=== PATIENT | female | born 1945 | race Caucasian/White ===

== ENCOUNTER 2020-07-21 12:40 | Emergency (ER) | payer MEDICARE, OTHER ==
[~2020-07-21] VITALS: Ht 167.6 cm; Wt 90.7 kg
[2020-07-21 15:22] LABS: Basophils # (auto) 0.1 10 ^3/uL (0-0.2); Basophils % (auto) 0.9 % (0.0-2.0); Eosinophils # (auto) 0.2 10 ^3/uL (0-0.8); Eosinophils % (auto) 1.7 % (0.0-7.0); Hematocrit 39.4 % (36.0-46.0); Hemoglobin 12.7 g/dL (12.2-16.2); Lymphocytes # (auto) 2.4 10 ^3/uL (0.4-5.4); Lymphocytes % (auto) 21.8 % (10.0-50.0); Mean Corpuscular Hgb Conc. 32.1 g/dL (32.0-36.0); Monocytes # (auto) 0.8 10 ^3/uL (0-1.3); Monocytes % (auto) 6.8 % (0.0-12.0); Neutrophils # (auto) 7.7 10 ^3/uL (1.6-8.6); Neutrophils % (auto) 68.8 % (37.0-80.0); Platelet Count (auto) 287 10^3/uL (140-450); Red Blood Cells 4.69 10^6/uL (4.0-5.20); Red Cell Distribution Width 15.9 % (11.8-14.3); White Blood Cell 11.2 10^3/uL (4.4-10.8)
[2020-07-21 15:52] LABS: Albumin 3.7 g/dL (3.4-5.0); Anion Gap 7 (5-15); Blood Urea Nitrogen 24 mg/dL (7-18); Calcium 9.1 mg/dL (8.5-10.1); Carbon Dioxide 27 mmol/L (21-32); Chloride 104 mmol/L (98-107); Glucose 101 mg/dL (74-106); Potassium 3.9 mmol/L (3.5-5.1); Sodium 138 mmol/L (136-145)
[2020-07-21 15:53] LABS: INR 1.11 (0.9-1.15); Partial Thromboplastin Time 29.1 sec (23.0-31.2)
[2020-07-21 15:59] LABS: Alanine Aminotransferase 16 U/L (13-56); Alkaline Phosphatase 116 U/L (45-117); Aspartate Aminotransferase 17 U/L (15-37); Bilirubin, Total 0.3 mg/dL (0.2-1.0); GFR African American 63 mL/min; GFR Non-African American 52 mL/min; Total Protein 8.3 g/dL (6.4-8.2)
[2020-07-21 17:13] VITALS: BP 139/55
[2020-07-21 17:28] LABS: Urine Bacteria FEW /hpf (None Seen); Urine Blood Negative /uL (Negative); Urine Mucus FEW (None Seen); Urine Specific Gravity 1.025 (1.001-1.035); Urine WBC 14 /hpf (0 - 5)
== END 2020-07-21 16:56 | disposition home or self-care (01) ==
LOC: EDBD 12:40 → ER 12:40
DX: S09.8XXA Other specified injuries of head, initial encounter (principal); I48.91 Unspecified atrial fibrillation; I10 Essential (primary) hypertension; W18.39XA Other fall on same level, initial encounter; Y93.89 Activity, other specified; Y92.89 Other specified places as the place of occurrence of the external cause; Y99.8 Other external cause status
CPT/HCPCS: 36415; 70450; 74176; 80053; 81001; 84484; 85025; 85610; 85730

== ENCOUNTER 2022-12-06 20:10 | Emergency (ER) | payer OTHER ==
[~2022-12-06] VITALS: Ht 172.7 cm; Wt 100.0 kg
[2022-12-06 23:08] VITALS: BP 120/62
[2022-12-06] MEDS ORDERED: AMOX-277 PO (23:43)
[2022-12-06] MEDS ORDERED: HYDROcodone-ACET 10/325MG TAB PO ONE (23:45)
[2022-12-06] MEDS ORDERED: TETANUS-DIPTH-ACEL PERTUSSIS 0.5ML SYR Tdap IM ONE (23:45)
== END 2022-12-07 00:03 | disposition home or self-care (01) ==
LOC: ER 20:10
DX: S61.452A Open bite of left hand, initial encounter (principal); W55.01XA Bitten by cat, initial encounter; Y93.89 Activity, other specified; Y92.89 Other specified places as the place of occurrence of the external cause; Y99.8 Other external cause status
CPT/HCPCS: 90471; 90715

== ENCOUNTER 2025-01-25 08:14 | Inpatient (IN) | payer OTHER ==
[2025-01-21 11:37] LABS: Basophils # (auto) 0.1 10 ^3/uL (0-0.2); Basophils % (auto) 1.4 % (0.0-2.0); Eosinophils # (auto) 0.1 10 ^3/uL (0-0.8); Eosinophils % (auto) 1.8 % (0.0-7.0); Hematocrit 39.9 % (36.0-46.0); Hemoglobin 12.8 g/dL (12.2-16.2); Lymphocytes # (auto) 1.6 10 ^3/uL (0.4-5.4); Lymphocytes % (auto) 21.4 % (10.0-50.0); Mean Corpuscular Hemoglobin 27.3 pg (28.0-32.0); Mean Corpuscular Hgb Conc. 32.1 g/dL (32.0-36.0); Monocytes # (auto) 0.6 10 ^3/uL (0-1.3); Monocytes % (auto) 8.6 % (0.0-12.0); Neutrophils # (auto) 4.9 10 ^3/uL (1.6-8.6); Neutrophils % (auto) 66.8 % (37.0-80.0); Platelet Count (auto) 231 10^3/uL (140-450); Red Blood Cells 4.69 10^6/uL (4.0-5.20); Red Cell Distribution Width 16.3 % (11.8-14.3); White Blood Cell 7.3 10^3/uL (4.4-10.8)
[2025-01-21 11:50] LABS: Chloride 105 mmol/L (98-107); Potassium 4.2 mmol/L (3.5-5.1); Sodium 141 mmol/L (136-145)
[2025-01-21 11:51] LABS: Anion Gap 6 (5-15); Calcium 9.1 mg/dL (8.7-10.4); Carbon Dioxide 30 mmol/L (20-31)
[2025-01-21 11:56] LABS: BUN/Creatinine Ratio 13.1 (10.0-20.0); Blood Urea Nitrogen 14 mg/dL (9-23); Glucose 103 mg/dL (74-106); INR 1.03 (0.9-1.15); Partial Thromboplastin Time 26.2 SEC (24.5-34.5); Prothrombin Time 10.9 sec (9.3-11.8)
[2025-01-25] VITALS (8 sets, daily range): BP systolic 137–165; BP diastolic 56–77; PULSE 60–74; RESP 12–18; TEMP 97.5–98.3; O2SAT 90–98
[~2025-01-25] VITALS: Ht 172.7 cm; Wt 105.5 kg
[~2025-01-25 08:14] MED LIST: ALPR1TAB7 PO; AMIO200T33 PO; APIX5TAB PO; ASPI-543 PO; FLUO-125 PO; FURO40TA4 PO; HYDR25TA88 PO; ISOS1TAB28 PO; LISI10TA34 PO; METO25TA93 PO
[2025-01-25] MEDS: IODIXANOL 320MG/ML 100ML BTL IV ONE ×3 (09:22→11:31)
[2025-01-25] MEDS: ANGIOMAX 250 MG VIAL IV ONE (09:24)
[2025-01-25] MEDS: VERAPAMIL 2.5MG/ML INJ 2ML VIAL IV ONE (09:25)
[2025-01-25] MEDS: LIDOCAINE 2%HCL (LOCAL ANESTH.) INJ 20ML MDV ONE ×3 (09:25→12:41)
[2025-01-25] MEDS: SODIUM CHL 0.9% 0 ML ONE (09:25)
[2025-01-25] MEDS: MIDAZOLAM HCL 2MG/2ML 2ml VIAL (1mg/ml) ONE ×3 (09:44→12:43)
[2025-01-25] MEDS: VANCOMYCIN 1GM/200ML PM 200 ML IV ONE (09:45)
[2025-01-25] MEDS: VANCOMYCIN HCL 1000 MG VL ONE ×2 (09:45→11:31)
[2025-01-25] MEDS: MORPHINE SULFATE 4 MG/ML SYR/VIAL ONE ×2 (10:15→14:54)
--- NOTE | 2025-01-25 13:37 | ECG ---
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
--- NOTE | 2025-01-25 15:42 | DVH ---
INDICATION: S/P PACEMAKER TECHNIQUE: Frontal view of the chest. COMPARISON: None FINDINGS: Left-sided pacemaker. The heart and mediastinal contours are grossly unremarkable. There is no evide nce of pleural disease. The lungs are clear. The bony structures of the chest are intact without f racture. IMPRESSION: 1. No evidence of acute disease.
[2025-01-25] MEDS: cefTRIAXone 2GM/50ML D5W 50 ML IV ONE (17:26)
--- NOTE | 2025-01-25 17:59 | DVHOP ---
DATE OF SURGERY: 01/25/2025 CARDIAC CATHETERIZATION REPORT INDICATION: This is a 79-year-old lady who presented with recurrent chest pain. PROCEDURE LIST: * Right and left coronary angiography. * Left ventriculogram. * Right iliofemoral angiogram. * Ultrasound-guided access in the right groin. * Conscious sedation over 1 hour. PROCEDURE: Please refer to procedure log for details on hemodynamic data and equipment. Briefly, an access was obtained using ultrasound-guided and fluoroscopy to gain access in the right groin. A 6-Gambian sheath was introduced in the right common femoral artery. We used right and left Jessica catheter to engage the right and left coronary artery and a pigtail catheter to engage the left ventricle. FINDINGS: The left main coronary artery is angiographically free of disease. It is patent. It bifurcates into the LAD and the circumflex. The LAD has luminal irregularity and 10% disease in the mid portion. The diagonal 1 was patent. Left circumflex has 10% disease in the midportion. Right coronary artery is a dominant vessel and it has some luminal irregularity. Left ventriculogram revealed normal left ventricular size, wall motions, left ventricular ejection fraction of 65%. LVEDP was 15 mmHg. Right iliofemoral angiogram revealed 10% disease in that vessel. Following the procedure, we removed the angio sheath. A manual compression was applied without any complication. Estimated blood loss was 10 mL. IMPRESSION: There was mild coronary artery disease. PLAN: The patient will continue on optimizing medical management. MD DWAINE Green/ALEXI TID: [id number] RECEIPT: [id number]
[2025-01-25] MEDS: ACETAMINOPHEN 325 MG TAB PO PRN (18:18)
--- NOTE | 2025-01-25 19:12 | DVHOP ---
DATE OF SURGERY: 01/25/2025 PERMANENT PACEMAKER INSERTION INDICATION: This is a 79-year-old lady who presented with sick sinus syndrome, symptomatic sinus bradycardia, and atrial fibrillation. PROCEDURE LIST: * Left axillary vein angiogram. * Ultrasound-guided access of the left axillary vein. * Insertion of a dual chamber permanent pacemaker with Medtronic model W3DR01, serial number [id number]. * Insertion of the right atrial lead Medtronic model 5076-52, serial number [id number]. * Insertion of the right ventricular lead with Medtronic model 5076-58, serial number [id number]. * Conscious sedation for 4 hours. PROCEDURE DETAILS: Please refer to procedure log for details on hemodynamic data and equipment used. Briefly, a left chest wall was sterilized. A left axillary vein angiogram was performed as a roadmap. We used ultrasound imaging to visualize left axillary vein. We introduced two pacemaker lead catheters in the left axillary vein, after which we inserted a Medtronic right atrial lead. We performed testing to satisfaction. After that, a right ventricular lead from Medtronic was also inserted in the right ventricle. A pacemaker parameter was obtained to satisfaction. The atrial lead and the ventricular lead were hooked up to the Medtronic pacemaker generator model, W3DR01. Final check was performed without any problem. The pacemaker was set on AAIR and BDDR mode with mode switch on, low rate of 60 beats per minute, upper tracking rate of 130 beats per minute. The patient remained stable throughout the procedure and post procedure. Estimated blood loss was 20 mL. IMPRESSION: The patient exhibits sick sinus syndrome status post successful placement of dual chamber pacemaker implantation. PLAN: The patient will be admitted for further observation overnight and if she remains stable, she will be discharged. She will follow up in the outpatient clinic. We will continue optimizing her medical management. MD DWAINE Green/ALEXI/ANSELMO TID: [id number] RECEIPT: [id number] BREEZY
[2025-01-25] MEDS: hydrALAZINE HCL 25 MG TAB PO SCH (21:51)
[2025-01-25] MEDS: MORPHINE SULFATE INJ 2 MG/ml SYRG IV PRN (21:53)
[2025-01-26] VITALS (8 sets, daily range): BP systolic 94–131; BP diastolic 50–66; PULSE 60–71; RESP 16–19; TEMP 97.5–98.7; O2SAT 91–97
[2025-01-26] MEDS: VANCOMYCIN 1GM/200ML PM 200 ML IV SCH (01:01)
--- NOTE | 2025-01-26 07:30 | DVH ---
EXAM: XR Chest, 1 View CLINICAL INDICATION: s/p PPI TECHNIQUE: Frontal view of the chest. COMPARISON: XY CHEST PORTABLE on DOS: 01/25/25 FINDINGS: LUNGS AND PLEURAL SPACES: See below. HEART: Cardiomegaly with mild congestion. MEDIASTINUM: Unremarkable. Normal mediastinal contour. BONES/JOINTS: Unremarkable. No acute fracture. TUBES, LINES AND DEVICES: Left-sided cardiac pacemaker. OTHER FINDINGS: . IMPRESSION: Cardiomegaly with mild congestion.
[2025-01-26] MEDS: AMIODARONE HCL 200 MG TAB PO SCH (10:24)
[2025-01-26] MEDS: ISOSORBIDE MONONITRATE ER 60 MG TAB PO SCH (10:24)
[2025-01-26] MEDS: FUROSEMIDE 40 MG TAB PO SCH (10:25)
[2025-01-26] MEDS: LISINOPRIL 5 MG TAB PO SCH (10:25)
[2025-01-26 12:31] LABS: Basophils # (auto) 0.1 10 ^3/uL (0-0.2); Basophils % (auto) 0.7 % (0.0-2.0); Eosinophils # (auto) 0.2 10 ^3/uL (0-0.8); Eosinophils % (auto) 2.2 % (0.0-7.0); Hematocrit 39.5 % (36.0-46.0); Hemoglobin 12.7 g/dL (12.2-16.2); Lymphocytes # (auto) 1.4 10 ^3/uL (0.4-5.4); Lymphocytes % (auto) 17.7 % (10.0-50.0); Mean Corpuscular Hemoglobin 27.8 pg (28.0-32.0); Mean Corpuscular Hgb Conc. 32.1 g/dL (32.0-36.0); Mean Corpuscular Volume 86.7 fL (80.0-100.0); Monocytes # (auto) 0.9 10 ^3/uL (0-1.3); Monocytes % (auto) 11.1 % (0.0-12.0); Neutrophils # (auto) 5.2 10 ^3/uL (1.6-8.6); Neutrophils % (auto) 68.3 % (37.0-80.0); Nucleated Red Blood Cells % 0.1 %; Platelet Count (auto) 170 10^3/uL (140-450); Red Blood Cells 4.56 10^6/uL (4.0-5.20); Red Cell Distribution Width 18.1 % (11.8-14.3); White Blood Cell 7.7 10^3/uL (4.4-10.8)
[2025-01-26 12:45] LABS: Alanine Aminotransferase 14 U/L (7-40); Albumin 3.9 g/dL (3.2-4.8); Alkaline Phosphatase 98 U/L (46-116); Anion Gap 5 (5-15); Aspartate Aminotransferase 23 U/L (13-40); BUN/Creatinine Ratio 13.2 (10.0-20.0); Blood Urea Nitrogen 14 mg/dL (9-23); Calcium 9.5 mg/dL (8.7-10.4); Carbon Dioxide 29 mmol/L (20-31); Chloride 109 mmol/L (98-107); Glucose 87 mg/dL (74-106); Potassium 4.3 mmol/L (3.5-5.1); Sodium 143 mmol/L (136-145); Total Protein 6.3 g/dL (5.7-8.2)
[2025-01-26 12:46] LABS: Bilirubin, Total 0.5 mg/dL (0.2-1.0)
[2025-01-26 13:43] LABS: INR 1.09 (0.9-1.15); Prothrombin Time 11.5 sec (9.3-11.8)
--- NOTE | 2025-01-26 13:59 | DVHPN ---
DATE: 01/26/2025 CARDIOLOGY PROGRESS NOTE SUBJECTIVE: This is a 79-year-old lady who was admitted with chest pain and sick sinus syndrome. The patient denied having any symptoms today. OBJECTIVE: VITAL SIGNS: Temperature 97.9, heart rate of 60, respiratory rate 18, blood pressure 131/64. GENERAL: She is alert and oriented x 3. She is not in acute distress. NECK: Supple. CHEST: Chest wall nontender. Her pacemaker wound site without any infection. LUNGS: Clear to auscultation bilaterally. HEART: Rate and rhythm are regular. ABDOMEN: Soft. Positive bowel sounds. EXTREMITIES: Show no edema, cyanosis, or clubbing. IMAGING: Chest x-ray revealed no evidence of pneumothorax. Pacemaker check revealed unstable sensing of the right ventricular lead. IMPRESSION: This is a 79-year-old lady who presented with: * Chest pain, appeared to be noncardiac in nature. * Sick sinus syndrome. * Sinus bradycardia. * Presence of a permanent pacemaker. * COPD. * Other comorbidities as previously listed. PLAN AND RECOMMENDATION: Due to malsensing of the right ventricular lead, the patient will be scheduled for revision of the right ventricular lead of her pacemaker. Informed consent was obtained from the patient. Risks and benefits including risk of infection were discussed with the patient. She agreed to proceed. The patient is scheduled for tomorrow, 01/27/2025, at 10:30 for revision of her pacemaker implantation. This case was discussed with the patient in detail and nursing staff. MD DWAINE Green/RADHA/TINA TID: [id number] RECEIPT: [id number]
[2025-01-26] MEDS: SODIUM CHLORIDE 0.9% 500 ML IV ONE (16:23)
[2025-01-26] MEDS: HYDROcodone-ACET 5/325MG TAB PO PRN (17:27)
[2025-01-27] VITALS (13 sets, daily range): BP systolic 123–169; BP diastolic 45–78; PULSE 60–71; RESP 13–18; TEMP 97.4–98.4; O2SAT 94–99
[2025-01-27] MEDS: ZOLPIDEM TARTRATE 5 MG TAB PO PRN (00:03)
[2025-01-27] MEDS: FLUoxetine HCL 20 MG CAP PO SCH (10:00)
[2025-01-27] MEDS: MIDAZOLAM HCL 2MG/2ML 2ml VIAL (1mg/ml) ONE (11:04)
[2025-01-27] MEDS: LIDOCAINE 2%HCL (LOCAL ANESTH.) INJ 20ML MDV ONE (11:04)
[2025-01-27] MEDS: VANCOMYCIN HCL 1000 MG VL ONE ×2 (11:04→11:12)
[2025-01-27] MEDS: VANCOMYCIN 1GM/200ML PM 0 ML IV ONE (11:04)
[2025-01-27] MEDS ORDERED: ACETAMINOPHEN 325 MG TAB PO PRN (14:00)
--- NOTE | 2025-01-27 14:49 | DVH ---
EXAM: XY CHEST PORTABLE HISTORY: S/P PACEMAKER COMPARISON: XY CHEST XRAY 1 VIEW on DOS: 01/26/25, XY CHEST PORTABLE on DOS: 01/25/25 TECHNIQUE: Portable AP view of the chest was performed. FINDINGS: There is right lung base scarring. No pneumothorax, new infiltrates, or pulmonary edema. The heart i s borderline enlarged. The aortic arch is calcific. Left chest pacemaker is re-identified. There ar e postoperative changes of the lumbar spine, not fully imaged here. IMPRESSION: No acute intrathoracic process.
--- NOTE | 2025-01-27 14:54 | DVHPN ---
DATE: 01/27/2025 CARDIOLOGY PROGRESS NOTE SUBJECTIVE: This is a 79-year-old lady who is status post pacemaker implantation. The patient denied having any symptoms at this time. OBJECTIVE: VITAL SIGNS: Stable. GENERAL: She is alert and oriented x3. She is in no acute distress. NECK: Supple. CHEST: Chest wall nontender. LUNGS: Reveals some crackle at the bases bilaterally. HEART: Rate and rhythm are regular. ABDOMEN: Soft. Positive bowel sounds. EXTREMITIES: Show no edema, cyanosis, or clubbing. Pacemaker site is intact without any infection. Right groin site was also without any bleeding or any hematoma. IMPRESSION: This is a 79-year-old lady who presents with: * Chest pain, which is noncardiac in nature. * Coronary artery disease of mild severity. * Sick sinus syndrome. * Sinus bradycardia with symptoms. * Presence of a dual chamber permanent pacemaker. * COPD. * Other comorbidities as previously listed. PLAN/RECOMMENDATION: At this time, we would recommend continue optimizing of her medical management. MD DWAINE Green/LAVINIA TID: [id number] RECEIPT: [id number]
[2025-01-27] MEDS ORDERED: MORPHINE SULFATE 4 MG/ML SYR/VIAL IV PRN (16:45)
--- NOTE | 2025-01-27 18:42 | DVHOP ---
DATE OF SURGERY: 01/27/2025 PROCEDURE: Pacemaker implantation procedure. INDICATION: This is a 79-year-old lady who is status post a dual chamber permanent pacemaker implantation 2 days prior. The patient's pacemaker lead had dislodged and required a pacemaker lead revision. PROCEDURES LIST: 1. Explantation of the pacemaker. 2. Reimplantation of the pacemaker 2. Reposition of the atrial and ventricular pacemaker leads. 3. Supervision of conscious sedation for 3 hours. Please refer to the procedure list for detail on hemodynamic data, equipment, and staffing. PROCEDURE DETAILS: Briefly, the left chest wall was sterilized and prepped. The patient was under conscious sedation. The pacemaker was explanted. Pacemaker lead was disconnected from pacemaker generator. The right atrial lead was repositioned. The right ventricular lead was also repositioned. Testing was performed with satisfactory data. The pacemaker was reimplanted along with the leads. The pocket was sutured back in place. The pacemaker generator was Medtronic, model W3DR01, serial number [id number]. The right atrium lead was Medtronic, model 5076-52, serial number [id number]. Right ventricular lead was Medtronic model 5076-58, serial number [id number]. The procedures were performed without any complications. The patient remained stable throughout the procedure and post procedure. The patient will continue to be hospitalized for observation. IV antibiotic will be given. We will obtain chest x-ray, pacemaker checking tomorrow. If the patient continues stable, we would consider discharge the patient home. MD DWAINE Green/SILVIA TID: [id number] RECEIPT: [id number] [facility] CENTERMaxwell
[2025-01-28] VITALS (12 sets, daily range): BP systolic 101–133; BP diastolic 53–84; PULSE 61–76; RESP 12–18; TEMP 97.3–98.5; O2SAT 91–99
[2025-01-28] MEDS ORDERED: VANCOMYCIN PER PHARMACY 0 MG IV SCH (05:00)
[2025-01-28 06:52] LABS: Basophils # (auto) 0.1 10 ^3/uL (0-0.2); Basophils % (auto) 0.9 % (0.0-2.0); Eosinophils # (auto) 0.2 10 ^3/uL (0-0.8); Eosinophils % (auto) 2.5 % (0.0-7.0); Hematocrit 38.2 % (36.0-46.0); Hemoglobin 12.8 g/dL (12.2-16.2); Lymphocytes # (auto) 1.7 10 ^3/uL (0.4-5.4); Lymphocytes % (auto) 21.2 % (10.0-50.0); Mean Corpuscular Hemoglobin 28.5 pg (28.0-32.0); Mean Corpuscular Hgb Conc. 33.6 g/dL (32.0-36.0); Mean Corpuscular Volume 84.9 fL (80.0-100.0); Monocytes # (auto) 0.8 10 ^3/uL (0-1.3); Monocytes % (auto) 10.5 % (0.0-12.0); Neutrophils # (auto) 5.2 10 ^3/uL (1.6-8.6); Neutrophils % (auto) 64.9 % (37.0-80.0); Nucleated Red Blood Cells % 0.1 %; Platelet Count (auto) 134 10^3/uL (140-450); Red Cell Distribution Width 18.1 % (11.8-14.3)
[2025-01-28 07:07] LABS: Alanine Aminotransferase 14 U/L (7-40); Albumin 3.9 g/dL (3.2-4.8); Alkaline Phosphatase 89 U/L (46-116); Anion Gap 5 (5-15); Aspartate Aminotransferase 26 U/L (13-40); BUN/Creatinine Ratio 12.9 (10.0-20.0); Blood Urea Nitrogen 12 mg/dL (9-23); Calcium 9.6 mg/dL (8.7-10.4); Carbon Dioxide 28 mmol/L (20-31); Glucose 97 mg/dL (74-106); Potassium 3.9 mmol/L (3.5-5.1); Sodium 142 mmol/L (136-145)
[2025-01-28 07:08] LABS: Total Protein 6.4 g/dL (5.7-8.2)
[2025-01-28 07:09] LABS: Bilirubin, Total 0.7 mg/dL (0.2-1.0)
[2025-01-28 07:20] LABS: Chloride 109 mmol/L (98-107)
--- NOTE | 2025-01-28 10:02 | DVH ---
CHEST RADIOGRAPH Indication: CXR FOR PACEMAKER/ICD LEAD PLACEMENT Technique: Portable AP view of the chest was performed. Comparison: XY CHEST PORTABLE on DOS: 01/27/25, XY CHEST XRAY 1 VIEW on DOS: 01/26/25, XY CHEST PORTABL E on DOS: 01/25/25, XY CHEST PORTABLE on DOS: 01/27/25 FINDINGS: There is right lung base scarring. No pneumothorax, new infiltrates, or pulmonary edema. The heart i s borderline enlarged. The aortic arch is calcific. Left chest pacemaker is re-identified. There ar e postoperative changes of the lumbar spine, not fully imaged here. IMPRESSION: No acute intrathoracic process.
--- NOTE | 2025-01-28 11:51 | DVHPN ---
DATE: 01/28/2025 CARDIOLOGY PROGRESS NOTE SUBJECTIVE: This is a 79-year-old lady hospitalized for chest pain and sick sinus syndrome status post pacemaker implantation. The patient did not have any symptoms at this time. OBJECTIVE: VITAL SIGNS: Stable. GENERAL: She is alert and oriented x 3. She is not acutely distressed. NECK: Supple. CHEST: Chest wall nontender. LUNGS: Reveal wheezing bilaterally. HEART: Rate and rhythm are regular. ABDOMEN: Soft. Positive bowel sounds. EXTREMITIES: Show no edema, cyanosis or clubbing. Pacemaker site is clean with gauze dressing. It is nontender. No discharge. No bleeding. IMAGING: Chest x-ray is unremarkable. IMPRESSION: This is a 79-year-old lady who presents with: * Chest pain, which is noncardiac in nature. * Coronary artery disease of mild severity. * Sick sinus syndrome. * Sinus bradycardia with symptoms. * Status post dual chamber permanent pacemaker implantation. * Acute COPD exacerbation. * Other comorbidities as previously listed. PLAN AND RECOMMENDATION: At this time, we will continue current care, continue optimization of medical management, continue IV vancomycin. The patient will be given albuterol nebulizer as needed for wheezing. We will repeat a chest x-ray tomorrow. If the patient continues to be stable and her COPD exacerbation does not get worse, we would consider discharging the patient tomorrow. Further recommendation pending clinical outcome of the patient. MD DWAINE Green/BEA/STONE TID: [id number] RECEIPT: [id number]
[2025-01-28] MEDS: ALBUTEROL SULF 2.5 MG/0.5ML(0.5%) NEB SOLN NEB PRN (13:34)
[2025-01-28] MEDS: diphenhdrAMINE HCL 25 MG CAP PO PRN (14:50)
[2025-01-28] MEDS: VANCOMYCIN 1.25GM/250ML 250 ML IV SCH (14:58)
[2025-01-29 01:00] VITALS: BP 122/56; PULSE 75; RESP 18; TEMP 98; O2SAT 94
[2025-01-29 05:00] VITALS: BP 114/52; PULSE 61; RESP 18; TEMP 97.8; O2SAT 95
[2025-01-29 06:51] VITALS: O2SAT 92
[2025-01-29 08:00] LABS: Basophils # (auto) 0.1 10 ^3/uL (0-0.2); Basophils % (auto) 0.8 % (0.0-2.0); Eosinophils # (auto) 0.2 10 ^3/uL (0-0.8); Hematocrit 37.7 % (36.0-46.0); Hemoglobin 12.4 g/dL (12.2-16.2); Lymphocytes # (auto) 1.6 10 ^3/uL (0.4-5.4); Lymphocytes % (auto) 20.4 % (10.0-50.0); Mean Corpuscular Hemoglobin 28.2 pg (28.0-32.0); Mean Corpuscular Volume 85.5 fL (80.0-100.0); Neutrophils # (auto) 5.1 10 ^3/uL (1.6-8.6); Neutrophils % (auto) 63.8 % (37.0-80.0); Nucleated Red Blood Cells % 0.1 %; Platelet Count (auto) 115 10^3/uL (140-450); Red Cell Distribution Width 18.5 % (11.8-14.3)
[2025-01-29 08:12] LABS: Alanine Aminotransferase 13 U/L (7-40); Albumin 3.6 g/dL (3.2-4.8); Alkaline Phosphatase 82 U/L (46-116); Anion Gap 8 (5-15); Aspartate Aminotransferase 23 U/L (13-40); BUN/Creatinine Ratio 14.5 (10.0-20.0); Blood Urea Nitrogen 17 mg/dL (9-23); Calcium 9.7 mg/dL (8.7-10.4); Carbon Dioxide 28 mmol/L (20-31); Glucose 85 mg/dL (74-106); Potassium 3.7 mmol/L (3.5-5.1); Sodium 144 mmol/L (136-145)
[2025-01-29 08:13] LABS: Bilirubin, Total 0.6 mg/dL (0.2-1.0)
[2025-01-29 08:16] LABS: Chloride 108 mmol/L (98-107)
[2025-01-29 09:00] VITALS: BP 125/48; PULSE 61; RESP 16; TEMP 97.8; O2SAT 97
[2025-01-29 09:30] VITALS: O2SAT 94
[2025-01-29 09:50] VITALS: BP 125/48; PULSE 61; RESP 16; TEMP 97.8; O2SAT 97
--- NOTE | 2025-01-29 10:00 | ECG ---
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
--- NOTE | 2025-01-29 10:07 | DVH ---
EXAM: XR Chest, 1 View CLINICAL INDICATION: patient is wheezing TECHNIQUE: Frontal view of the chest. COMPARISON: XY CHEST XRAY 1 VIEW on DOS: 01/28/25, XY CHEST PORTABLE on DOS: 01/27/25, XY CHEST XRAY 1 VIEW on DOS: 01/26/25, XY CHEST PORTABLE on DOS: 01/25/25 FINDINGS: LUNGS AND PLEURAL SPACES: Unremarkable. No consolidation. No pneumothorax. HEART: Unremarkable. No cardiomegaly. MEDIASTINUM: Unremarkable. Normal mediastinal contour. BONES/JOINTS: Unremarkable. No acute fracture. TUBES, LINES AND DEVICES: Left-sided cardiac pacemaker. OTHER FINDINGS: . . IMPRESSION: No acute cardiopulmonary process.
--- NOTE | 2025-01-29 10:48 | ECG ---
[facility] Test Date: 2025-01-27 Test Time: 14:08:36 Pat Name: EDUARDO MAXWELLDepartment: Room: 0219T B Gender: F Medical Oncology Physician: ELIJAH : 1945 Requested By: CHRISTI ZARATE Order Number: [id number] Reading MD: Michael Pierre Measurements Intervals [place] Rate: 60 P: 112 W[place]: 208 QRS: 142 QRSD: 74 T: 135 QT: 480 QTc: 480 Interpretive Statements Suspect arm lead reversal, interpretation assumes no reversal Electronic atrial pacemaker Right axis deviation Low voltage QRS Prolonged QT Electronically Signed On 01-30-2025 22:50:40 PDT by Michael Pierre Please click the below link to view image of tracing.
--- NOTE | 2025-01-29 10:50 | ECG ---
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
--- NOTE | 2025-01-29 13:11 | DVHDS ---
DATE OF DISCHARGE: 01/29/2025 DIAGNOSES: * Chest pain. * Coronary artery disease. * Sick sinus syndrome. * Sinus bradycardia with symptoms. * Acute COPD exacerbation. * Hypertension. * Thrombocytopenia. * Other comorbidities as previously listed. PROCEDURES PERFORMED: * Coronary angiography. * Left heart catheterization. * Implantation of a dual-chamber pacemaker with Medtronic device. * Pacemaker lead revision with reimplantation of the dual-chamber pacemaker. HOSPITAL COURSE: The patient was admitted on 01/25/2025. The patient underwent a cardiac catheterization that revealed mild coronary artery disease. Her symptom of chest pain was thought to be not secondary to coronary blockage. On 01/25/2025, the patient underwent an implantation of a dual-chamber pacemaker successfully. On the following day, the pacemaker right ventricular lead was noted to be dislodged and the patient was scheduled for a lead revision. A lead revision with reimplantation of the dual-chamber pacemaker was successfully performed on 01/27/2025. The patient subsequently also developed acute COPD exacerbation requiring additional hospitalization. The patient will be discharged today 01/29/2025 in stable condition. Her pacemaker interrogation revealed normal functioning pacemaker. The patient's left arm will be put in the arm sling for two weeks. The patient is instructed on wound care. The patient is to keep pacemaker site wound dry and clean for the next two weeks. The patient was instructed not to overreach her left arm as this may cause the pacemaker lead to come out during the next two weeks. The patient advised to follow up in the Cardiovascular Clinic with Dr. Bobby on 02/09/2025 at 9:45 a.m. MD DWAINE Green/AARON TID: [id number] RECEIPT: [id number]
== END 2025-01-29 11:00 | disposition home or self-care (01) | DRG 243 ==
LOC: CATH 08:14 → OVERFLOW 14:59 → TELE-CENTR 16:48
PROVIDERS: ADMIT Internal Medicine Cardiovascular Disease; ATTEND Internal Medicine Cardiovascular Disease
PROC: 0JH606Z Insertion of Pacemaker, Dual Chamber into Chest Subcutaneous Tissue and Fascia, Open Approach (ICD-10-PCS; principal; 2025-01-25)
PROC: 02H63JZ Insertion of Pacemaker Lead into Right Atrium, Percutaneous Approach (ICD-10-PCS; 2025-01-25)
PROC: 4A023N7 Measurement of Cardiac Sampling and Pressure, Left Heart, Percutaneous Approach (ICD-10-PCS; 2025-01-25)
PROC: B211YZZ Fluoroscopy of Multiple Coronary Arteries using Other Contrast (ICD-10-PCS; 2025-01-25)
PROC: B215YZZ Fluoroscopy of Left Heart using Other Contrast (ICD-10-PCS; 2025-01-25)
PROC: B41FYZZ Fluoroscopy of Right Lower Extremity Arteries using Other Contrast (ICD-10-PCS; 2025-01-25)
PROC: 02HK3JZ Insertion of Pacemaker Lead into Right Ventricle, Percutaneous Approach (ICD-10-PCS; 2025-01-25)
PROC: B51NYZZ Fluoroscopy of Left Upper Extremity Veins using Other Contrast (ICD-10-PCS; 2025-01-25)
PROC: 0JWT0PZ Revision of Cardiac Rhythm Related Device in Trunk Subcutaneous Tissue and Fascia, Open Approach (ICD-10-PCS; 2025-01-27)
PROC: 02WA3MZ Revision of Cardiac Lead in Heart, Percutaneous Approach (ICD-10-PCS; 2025-01-27)
DX: I49.5 Sick sinus syndrome (principal); J44.1 Chronic obstructive pulmonary disease with (acute) exacerbation; T82.121A Displacement of cardiac pulse generator (battery), initial encounter; I25.10 Atherosclerotic heart disease of native coronary artery without angina pectoris; I10 Essential (primary) hypertension; D69.6 Thrombocytopenia, unspecified; I48.91 Unspecified atrial fibrillation; Z79.899 Other long term (current) drug therapy; Y83.8 Other surgical procedures as the cause of abnormal reaction of the patient, or of later complication, without mention of misadventure at the time of the procedure; Y92.238 Other place in hospital as the place of occurrence of the external cause
CPT/HCPCS: 33208; 33220; 36415; 71045; 75710; 80048; 80053; 80202; 83880; 85025; 85610; 85730; 93005; 93458; 94640; 99152; 99153; C1894; G0378; J2250; Q9967